=== PATIENT | female | born 1960 | race Caucasian/White ===

== ENCOUNTER 2017-07-05 11:19 | Emergency (ER) | payer OTHER ==
[~2017-07-05] VITALS: Ht 167.6 cm; Wt 63.0 kg
[~2017-07-05 11:19] MED LIST: IBUP-1050 PO
[2017-07-05 11:31] VITALS: TEMP 36.6; Ht 167.6 cm; Wt 63.0 kg
[2017-07-05] MEDS ORDERED: ONDANSETRON INJ 2 MG/ML 2 ML VIAL IV STA (12:06)
[2017-07-05] MEDS ORDERED: LORAZEPAM 2 MG/ML 1 ML VIAL IV STA (12:06)
[2017-07-05 12:08] VITALS: O2SAT 98
[2017-07-05 12:19] LABS: URINE APPEARANCE CLEAR (CLEAR); URINE BILIRUBIN NEG (NEG); URINE COLOR YELLOW; URINE NITRITE NEG (NEG); URINE PH 5.5 (4.5-7.5); URINE SPECIFIC GRAVITY 1.013 (1.000-1.030); UROBILINOGEN NEG (NEG)
[2017-07-05] MEDS ORDERED: ZINC1CAP PO (12:22)
[2017-07-05] MEDS ORDERED: B-COTAB18 PO (12:22)
[2017-07-05] MEDS ORDERED: MULT-1027 PO (12:22)
[2017-07-05] MEDS ORDERED: NUTR50CA PO (12:22)
[2017-07-05] MEDS ORDERED: CHOL400T PO (12:22)
[2017-07-05 12:24] LABS: MANUAL MICROSCOPIC REQUIRED? NO; REVIEW REQ? NO
[2017-07-05 12:29] LABS: BASO % 0.6 %; BASO ABS # 0.05 K/uL (0-0.2); COMPLETE YES; EOS % 1.8 %; HEMATOCRIT 46.2 % (37-47); IG% 0.1 %; LYMPH % 28.5 %; LYMPH ABS # 2.35 K/uL (1.2-3.4); MEAN CELL VOLUME 90.8 fL (80-100); MEAN CORPUSCULAR HEMOGLOBIN 31.2 pg (25-34); MEAN CORPUSCULAR HGB CONC 34.4 g/dl (32-36); MEAN PLATELET VOLUME 9.6 fL (7.4-10.4); MONO % 4.6 %; NEUT % 64.4 %; PLATELET COUNT 311 K/uL (130-400); RED BLOOD COUNT 5.09 M/uL (4.2-5.4); WHITE BLOOD COUNT 8.26 K/uL (4.8-10.8)
--- NOTE | 2017-07-05 12:29 | DIAGNOSTIC IMAGING REPORT ---
CHEST ONE VIEW PORTABLE CLINICAL HISTORY: EVALUATE ALTERED MENTAL STATUS/WEAKNESS dyspnea COMPARISON STUDY: No previous studies for comparison. FINDINGS: The bones soft tissues and hemidiaphragms are normal. The cardiomediastinal silhouette is normal. The lungs are clear. The pulmonary vasculature is normal. IMPRESSION: Negative chest. The above report was generated using voice recognition software. It may contain grammatical, syntax or spelling errors. Electronically signed by: Jose E Hankins M.D. 07/05/2017 12:28 PM Dictated Date/Time: 07/05/2017 12:28 PM
[2017-07-05 12:33] LABS: PROTHROMBIN TIME (PATIENT) 10.8 SECONDS (9.0-12.0)
[2017-07-05 12:40] LABS: ALT/SGPT 29 U/L (12-78); BLOOD UREA NITROGEN 11 mg/dl (7-18); BUN/CREATININE RATIO 10.7 (10-20); CALCIUM 9.5 mg/dl (8.5-10.1); CARBON DIOXIDE 26 mmol/L (21-32); CHLORIDE 106 mmol/L (98-107); CREATININE 1.04 mg/dl (0.60-1.20); GLUCOSE 105 mg/dl (70-99); MAGNESIUM 2.1 mg/dl (1.8-2.4); POTASSIUM 3.7 mmol/L (3.5-5.1); SODIUM 139 mmol/L (136-145)
[2017-07-05 12:50] LABS: ALKALINE PHOSPHATASE 83 U/L (45-117); AST/SGOT 18 U/L (15-37)
--- NOTE | 2017-07-05 12:56 | DIAGNOSTIC IMAGING REPORT ---
CT SCAN OF THE BRAIN WITHOUT IV CONTRAST CLINICAL HISTORY: Weakness. Vertigo. Change in mental status. Headache. COMPARISON STUDY: CT of the brain dated 10/02/2007. TECHNIQUE: Unenhanced axial CT scan of the brain is performed from the vertex to the skull base. A dose lowering technique was utilized adhering to the principles of ALARA. CT DOSE: 638.56 mGycm FINDINGS: Brain parenchyma: The brain parenchyma is normal in appearance. There is no hemorrhage, mass effect, or evidence of acute territorial ischemia by CT criteria. Joseph-white matter is preserved. No extra-axial fluid collection is seen. Ventricles, sulci, cisterns: Normal in configuration. Intracranial vasculature: The visualized intracranial vasculature at the skull base is normal in appearance. Calvarium: Unremarkable. Sinuses and mastoids: The visualized paranasal sinuses are clear. The mastoid air cells are well pneumatized. Orbits: The bony orbits are grossly intact. IMPRESSION: No acute intracranial abnormality. Electronically signed by: Thuan Cardona M.D. 07/05/2017 12:54 PM Dictated Date/Time: 07/05/2017 12:53 PM
[2017-07-05] MEDS ORDERED: AMOX875T PO (14:16)
[2017-07-05 14:38] VITALS: BP 129/74; PULSE 66; O2SAT 99
--- NOTE | 2017-07-05 16:44 | EMERGENCY ROOM VISIT NOTE ---
History Report prepared by Gauri: Dipti Burgos Under the Supervision of: Dr. Gregg Valdez D.O. First contact with patient: 12:02 Chief Complaint: VERTIGO Stated Complaint: VERTIGO, DIZZY, BLURRED VISION, THOMPSON, EARS, ANXIETY Nursing Triage Summary: Vertogo lasting "a while", THOMPSON with photophobia and sensitivity to sound. Pt reports has been worsening. Hx of Anxiety. No meds currently for anxiety History of Present Illness The patient is a 57 year old female who presents to the Emergency Room with complaints of constant vertigo beginning CERTIFIED NUTRITIONIST. She notes chills, dizziness, blurry vision, sinus congestion, headaches, and nausea. The patient has been experiencing these symptoms for the past few weeks. Three days ago she developed a migraine headache and her symptoms worsened. She called her PCP today and was advised to come to the ED for further evaluation because they were unable to see her in the office. The patient rates her current pain as a 5/ 10 in severity. She denies fevers and vomiting. Source of History: patient Onset: CERTIFIED NUTRITIONIST Position: other (global) Symptom Intensity: 5/10 Quality: other (vertigo) Timing: constant Associated Symptoms: + chills, + headache, + nausea, No fevers, No vomiting Note: Pt notes dizziness, blurry vision, sinus congestion. Review of Systems See HPI for pertinent positives & negatives. A total of 10 systems reviewed and were otherwise negative. Past Medical & Surgical Medical Problems: (1) Anxiety (2) Migraines (3) No significant active problems Family History No pertinent history stated. Social History Smoking Status: Former Smoker Smokeless Tobacco Use: No Alcohol Use: occasionally Current/Historical Medications Scheduled Amoxicillin & Pot Clavulanate (Augmentin 875-125 mg), 875 MG PO BID B-Complex Vitamins (Vitamin B Complex), 1 TAB PO DAILY Cholecalciferol (Vitamin D), 400 UNITS PO DAILY Multiple Vitamin (Multi Vitamin), 1 TAB PO DAILY Nutritional Supplements (Dhea), 1 CAP PO DAILY Zinc Sulfate (Zinc Sulfate), 220 MG PO DAILY Scheduled PRN Ibuprofen (Advil), 200 MG PO Allergies Coded Allergies: Iodine (Verified Allergy, Mild, 07/05/17) Physical Exam Vital Signs Date Time Temp Pulse Resp B/P (MAP) Pulse Ox O2 Delivery O2 Flow Rate FiO2 07/05/17 14:38 66 18 129/74 99 07/05/17 13:18 72 18 97/86 97 Room Air 07/05/17 12:55 70 07/05/17 12:30 72 165/101 99 Room Air 85 155/91 73 150/100 07/05/17 12:08 98 Room Air 07/05/17 12:08 98 Room Air 07/05/17 11:50 71 18 177/107 99 Room Air 07/05/17 11:31 36.6 81 20 157/97 98 Room Air Physical Exam GENERAL: Patient is awake, alert, and in no acute distress. Patient is resting comfortably and showing no signs of anxiety EYES: The conjunctivae are clear. The pupils are round and reactive. EARS, NOSE, MOUTH AND THROAT: The nose is without any evidence of any deformity. Mucous membranes are moist tongue is midline. TMs clear bilaterally. NECK: The neck is nontender and supple. RESPIRATORY: Normal respiratory effort is noted there is no evidence of wheezing rhonchi or rales CARDIOVASCULAR: Regular rate and rhythm noted there no murmurs rubs or gallops normal S1 normal S2 GASTROINTESTINAL: The abdomen is soft. Bowel sounds are present in all quadrants. Abdomen is nontender MUSCULOSKELETAL/EXTREMITIES: There is no evidence of gross deformity full range of motion is noted in the hips and shoulders SKIN: There is no obvious evidence of any rash. There are no petechiae, pallor or cyanosis noted. NEUROLOGIC: Patient is awake alert and oriented x3 strength is symmetric patellar reflexes are 2+ bilaterally Medical Decision & Procedures ER Provider Diagnostic Interpretation: Radiology results as stated below per my review and radiologist interpretation: CT SCAN OF THE BRAIN WITHOUT IV CONTRAST CLINICAL HISTORY: Weakness. Vertigo. Change in mental status. Headache. COMPARISON STUDY: CT of the brain dated 10/02/2007. TECHNIQUE: Unenhanced axial CT scan of the brain is performed from the vertex to the skull base. A dose lowering technique was utilized adhering to the principles of ALARA. CT DOSE: 638.56 mGycm FINDINGS: Brain parenchyma: The brain parenchyma is normal in appearance. There is no hemorrhage, mass effect, or evidence of acute territorial ischemia by CT criteria. Joseph-white matter is preserved. No extra-axial fluid collection is seen. Ventricles, sulci, cisterns: Normal in configuration. Intracranial vasculature: The visualized intracranial vasculature at the skull base is normal in appearance. Calvarium: Unremarkable. Sinuses and mastoids: The visualized paranasal sinuses are clear. The mastoid air cells are well pneumatized. Orbits: The bony orbits are grossly intact. IMPRESSION: No acute intracranial abnormality. Electronically signed by: Thuan Cardona M.D. 07/05/2017 12:54 PM Dictated Date/Time: 07/05/2017 12:53 PM CHEST ONE VIEW PORTABLE CLINICAL HISTORY: EVALUATE ALTERED MENTAL STATUS/WEAKNESS dyspnea COMPARISON STUDY: No previous studies for comparison. FINDINGS: The bones soft tissues and hemidiaphragms are normal. The cardiomediastinal silhouette is normal. The lungs are clear. The pulmonary vasculature is normal. IMPRESSION: Negative chest. The above report was generated using voice recognition software. It may contain grammatical, syntax or spelling errors. Electronically signed by: Jose E Hankins M.D. 07/05/2017 12:28 PM Dictated Date/Time: 07/05/2017 12:28 PM Laboratory Results 07/05/17 11:45 Red Blood Count 5.09, Mean Corpuscular Volume 90.8, Mean Corpuscular Hemoglobin 31.2, Mean Corpuscular Hemoglobin Concent 34.4, Mean Platelet Volume 9.6, Neutrophils (%) (Auto) 64.4, Lymphocytes (%) (Auto) 28.5, Monocytes (%) (Auto) 4.6, Eosinophils (%) (Auto) 1.8, Basophils (%) (Auto) 0.6, Neutrophils # (Auto) 5.32, Lymphocytes # (Auto) 2.35, Monocytes # (Auto) 0.38, Eosinophils # (Auto) 0.15, Basophils # (Auto) 0.05 07/05/17 11:45 Test 07/05/17 11:45 07/05/17 11:50 White Blood Count 8.26 K/uL (4.8-10.8) Red Blood Count 5.09 M/uL (4.2-5.4) Hemoglobin 15.9 g/dL (12.0-16.0) Hematocrit 46.2 % (37-47) Mean Corpuscular Volume 90.8 fL (80-100) Mean Corpuscular Hemoglobin 31.2 pg (25-34) Mean Corpuscular Hemoglobin Concent 34.4 g/dl (32-36) Platelet Count 311 K/uL (130-400) Mean Platelet Volume 9.6 fL (7.4-10.4) Neutrophils (%) (Auto) 64.4 % Lymphocytes (%) (Auto) 28.5 % Monocytes (%) (Auto) 4.6 % Eosinophils (%) (Auto) 1.8 % Basophils (%) (Auto) 0.6 % Neutrophils # (Auto) 5.32 K/uL (1.4-6.5) Lymphocytes # (Auto) 2.35 K/uL (1.2-3.4) Monocytes # (Auto) 0.38 K/uL (0.11-0.59) Eosinophils # (Auto) 0.15 K/uL (0-0.5) Basophils # (Auto) 0.05 K/uL (0-0.2) RDW Standard Deviation 41.4 fL (36.4-46.3) RDW Coefficient of Variation 12.5 % (11.5-14.5) Immature Granulocyte % (Auto) 0.1 % Immature Granulocyte # (Auto) 0.01 K/uL (0.00-0.02) Prothrombin Time 10.8 SECONDS (9.0-12.0) Prothromb Time International Ratio 1.0 (0.9-1.1) Activated Partial Thromboplast Time 27.0 SECONDS (21.0-31.0) Partial Thromboplastin Ratio 1.0 Anion Gap 8.0 mmol/L (3-11) Est Creatinine Clear Calc Drug Dose 55.8 ml/min Estimated GFR () 69.1 Estimated GFR (Non- 59.6 BUN/Creatinine Ratio 10.7 (10-20) Calcium Level 9.5 mg/dl (8.5-10.1) Magnesium Level 2.1 mg/dl (1.8-2.4) Total Bilirubin 1.4 mg/dl (0.2-1) Direct Bilirubin 0.2 mg/dl (0-0.2) Aspartate Amino Transf (AST/SGOT) 18 U/L (15-37) Alanine Aminotransferase (ALT/SGPT) 29 U/L (12-78) Alkaline Phosphatase 83 U/L (45-117) Troponin I < 0.015 ng/ml (0-0.045) Total Protein 8.0 gm/dl (6.4-8.2) Albumin 4.6 gm/dl (3.4-5.0) Thyroid Stimulating Hormone (TSH) 1.330 uIu/ml (0.300-4.500) Urine Color YELLOW Urine Appearance CLEAR (CLEAR) Urine pH 5.5 (4.5-7.5) Urine Specific [place] 1.013 (1.000-1.030) Urine Protein NEG (NEG) Urine Glucose (UA) NEG (NEG) Urine Ketones NEG (NEG) Urine Occult Blood NEG (NEG) Urine Nitrite NEG (NEG) Urine Bilirubin NEG (NEG) Urine Urobilinogen NEG (NEG) Urine Leukocyte Esterase NEG (NEG) Laboratory results per my review. Medications Administered Medications (Trade) Dose Ordered Sig/Phong Route Start Time Stop Time Status Last Admin Dose Admin Ondansetron HCl (Zofran Inj) 4 mg NOW STAT IV 07/05/17 12:06 07/05/17 12:07 DC 07/05/17 12:36 4 MG Lorazepam (Ativan Inj) 0.5 mg NOW STAT IV 07/05/17 12:06 07/05/17 12:07 DC 07/05/17 12:36 0.5 MG ECG Indication: other Rate (beats per minute): 71 Rhythm: normal sinus Findings: no acute ischemic change, no ectopy Comparison ECG Date: 12/21/12 Change: no significant change ED Course 1202: The patient was evaluated in room C1B. A complete history and physical examination were performed. 1206: Ativan 0.5 mg IV, Zofran 4 mg IV 1431: I reassessed the patient at this time. She is feeling better and resting comfortably. I discussed the results and treatment plan with the patient. I answered all pertaining questions that she had. She expressed understanding and verbalized agreement. The patient will be discharged home. Medical Decision Differential diagnosis: Etiologies such as benign positional vertigo, dehydration, hypovolemia, anemia, tumor, infection, hypoglycemia, electrolyte abnormalities, cardiac sources, intracerebral event, toxicologic, neurologic, as well as others were entertained. Nursing notes reviewed. The patient is a 57-year-old female who presented to the emergency department for an evaluation of vertigo. The patient did not have any focal neurologic deficits. She had significant complaints of sinus complaints and congestion. The patient was sent to the emergency department for evaluation by her primary care physician's office. I discussed the patient's laboratory and radiographic studies with her. She was started on an antibiotic for possible sinus infection and was encouraged to call her primary care physician to schedule further evaluation. She was also instructed to discuss the possibility that she may require further studies such as an MRI the brain or possibly a referral to an ear nose and throat physician. Medication Reconcilliation Current Medication List: was personally reviewed by me Blood Pressure Screening Patient's blood pressure: Normal blood pressure Impression Primary Impression: Vertigo Additional Impression: Sinus infection Scribe Attestation The scribe's documentation has been prepared under my direction and personally reviewed by me in its entirety. I confirm that the note above accurately reflects all work, treatment, procedures, and medical decision making performed by me. Departure Information Dispostion Home / Self-Care Prescriptions Amoxicillin & Pot Clavulanate (Augmentin 875-125 mg) 1 Tab Tab 875 MG PO BID for 7 Days, #14 TAB Prov: Gregg Valdez, DO 07/05/17 Referrals Margarette West M.D. (PCP) Forms HOME CARE DOCUMENTATION FORM, IMPORTANT VISIT INFORMATION, WORK / SCHOOL INSTRUCTIONS Patient Instructions ED Vertigo Unspecified, My [facility], Sinusitis Acute Additional Instructions Continue using Motrin and Tylenol for pain. Continue using decongestants such as Flonase for nasal congestion. Call your family to schedule a follow-up appointment. You may require a referral to an ear nose and throat physician if symptoms do not improve. Problem Qualifiers Additional Impression: Sinus infection Sinusitis location: unspecified location Chronicity: acute Recurrence: not specified as recurrent Qualified Codes: J01.90 - Acute sinusitis, unspecified
== END 2017-07-05 14:44 | disposition home or self-care (01) ==
LOC: C.EDB 11:21 → C.EDC 14:44
DX: R42 Dizziness and giddiness (principal); J32.9 Chronic sinusitis, unspecified; F41.9 Anxiety disorder, unspecified; Z79.899 Other long term (current) drug therapy; Z91.09 Other allergy status, other than to drugs and biological substances